=== PATIENT | male | born 1970 | race American Indian/Alaskan Native ===

== ENCOUNTER 2019-05-26 09:10 | Emergency (ER) | payer BC ==
[2019-05-26 09:16] VITALS: BP 167/102
[2019-05-26] MEDS ORDERED: TORADOL IM ONE (09:52)
--- NOTE | 2019-05-26 09:56 | Emergency Department Report ---
ED Back Pain/Injury HPI - General Chief Complaint: Back Pain/Injury Stated Complaint: BACK PAIN Time Seen by Provider: 05/26/19 09:52 Source: patient Limitations: No Limitations - History of Present Illness Initial Comments: Patient is 49 years old male with history of herniated disc. Patient presented to the ER complaining of lower back pain radiates down to his left leg for the last 3 days. Patient denied any recent injury. Patient also denied any fever or chills. No weight loss. No bowel or bladder incontinence. Patient also denied any weakness numbness or tingling sensation. MD Complaint: back pain -: days(s) (5) - Related Data Allergies Allergy/AdvReac Type Severity Reaction Status Date / Time No Known Allergies Allergy Unverified 05/26/19 09:13 ED Review of Systems ROS: Stated complaint: BACK PAIN Other details as noted in HPI Comment: All other systems reviewed and negative Constitutional: denies: chills, fever Respiratory: denies: cough, shortness of breath, SOB with exertion, wheezing Cardiovascular: denies: chest pain, palpitations Gastrointestinal: denies: abdominal pain Musculoskeletal: back pain. denies: joint swelling, arthralgia, myalgia Neurological: denies: headache, weakness ED Past Medical Hx - Past Medical History Previous Medical History?: Yes Hx Hypertension: Yes - Surgical History Past Surgical History?: No - Social History Smoking Status: Never Smoker Substance Use Type: None ED Physical Exam - General Limitations: No Limitations General appearance: alert, in no apparent distress - Head Head exam: Present: atraumatic, normocephalic, normal inspection - Eye Eye exam: Present: normal appearance - ENT ENT exam: Present: normal exam, normal orophraynx, mucous membranes moist - Neck Neck exam: Present: normal inspection, full ROM. Absent: tenderness, meningismus, lymphadenopathy, thyromegaly - Respiratory Respiratory exam: Present: normal lung sounds bilaterally - Cardiovascular Cardiovascular Exam: Present: regular rate, normal rhythm, normal heart sounds - GI/Abdominal GI/Abdominal exam: Present: soft, normal bowel sounds. Absent: distended, tenderness, guarding, rebound, rigid, hypoactive bowel sounds, mass, bruit, pulsatile mass, hernia - Extremities Exam Extremities exam: Present: normal inspection, full ROM, normal capillary refill. Absent: pedal edema, calf tenderness - Back Exam Back exam: Present: normal inspection, full ROM, muscle spasm. Absent: CVA tenderness (R), CVA tenderness (L), paraspinal tenderness, vertebral tenderness - Neurological Exam Neurological exam: Present: alert, oriented X3, CN II-XII intact, normal gait, reflexes normal - Psychiatric Psychiatric exam: Present: normal mood - Skin Skin exam: Present: warm, intact, normal color ED Course Vital Signs 05/26/19 09:15 Temperature 98.5 F Pulse Rate 90 Respiratory 18 Rate Blood Pressure 167/102 O2 Sat by Pulse 98 Oximetry Critical care attestation.: If time is entered above; I have spent that time in minutes in the direct care of this critically ill patient, excluding procedure time. ED Disposition Clinical Impression: Acute back pain Disposition: DC-01 TO HOME OR SELFCARE Is pt being admited?: No Condition: Stable Instructions: Lumbar Radiculopathy (ED) Referrals: PRIMARY CARE, [Referring] - 3-5 Days
== END 2019-05-26 10:28 | disposition home or self-care (01) ==
LOC: ED 09:10
DX: M54.5 Low back pain (principal); I10 Essential (primary) hypertension
CPT/HCPCS: 96372; 99282; J1885

== ENCOUNTER 2021-12-30 08:49 | Day surgery (SDC) | payer BC ==
[2021-12-30] MEDS ORDERED: LACTATED RINGERS 1,000 ML ONE (09:09)
[2021-12-30] MEDS ORDERED: ceFAZolin/STERILE WATER 2 GM/20 ML SYRINGE IV NR (10:00)
[2021-12-30] MEDS ORDERED: ACETAMINOPHEN 500 MG TAB PO NR (10:32)
[2021-12-30] MEDS ORDERED: HYDROmorphone 1 MG/1 ML INJ IV PRN ×2 (10:32)
[2021-12-30] MEDS ORDERED: MAGNESIUM OXIDE 400 MG TAB PO ONE (10:32)
[2021-12-30] MEDS ORDERED: ONDANSETRON 4 MG/2 ML INJ IV PRN (10:32)
--- NOTE | 2021-12-30 10:33 | Anesthesia Day of Surgery ---
Anesthesia Day of Surgery - Day of Surgery Patient Examined: Yes Patient H&P Reviewed: Yes Patient is NPO: Yes
--- NOTE | 2021-12-30 10:34 | Anesthesia Consultation ---
Anesthesia Consult and Med Hx Date of service: 12/30/21 - Airway Anesthetic Teeth Evaluation: Good ROM Head & Neck: Adequate Mental/Hyoid Distance: Adequate Mallampati Class: Class III Intubation Access Assessment: Probably Good - Pre-Operative Health Status ASA Pre-Surgery Classification: ASA3 Proposed Anesthetic Plan: General - Pulmonary Hx Smoking: Yes (STOPPED X 20 YRS) Hx Sleep Apnea: Yes (DX SLEEP APNEA , NO CPAP USE.) - Cardiovascular System Hx Hypertension: Yes (X 3 YRS) - Central Nervous System Hx Back Pain: Yes (WITH LEFT LEG PAIN) Hx Psychiatric Problems: No - Gastrointestinal Hx Gastroesophageal Reflux Disease: No - Hematic Hx Anemia: No Hx Sickle Cell Disease: No - Other Systems Hx Cancer: No
[2021-12-30] MEDS ORDERED: CELECOXIB 200 MG CAP PO NR (11:00)
[2021-12-30] MEDS ORDERED: LACTATED RINGERS 1,000 ML IV SCH (11:00)
[2021-12-30] MEDS ORDERED: MIDAZOLAM 2 MG/2 ML INJ IV NR (11:00)
[2021-12-30] MEDS ORDERED: MIDAZOLAM 5 MG/5 ML INJ MDV IV ONE (12:39)
[2021-12-30] MEDS ORDERED: fentaNYL 100 MCG/2 ML INJ ONE (12:40)
[2021-12-30] MEDS ORDERED: dexAMETHasone 4 MG/ML VIAL ONE (12:41)
[2021-12-30] MEDS ORDERED: BUPIVACAINE/PF (0.25%) 2.5 MG/ML 30 ML VIAL INFILTRATI ONE (12:41)
[2021-12-30] MEDS ORDERED: LIDOCAINE (1%) 10 MG/1 ML VIAL 20 ML MDV ONE (12:43)
[2021-12-30] MEDS ORDERED: BUPIVACAINE/PF (0.5%) 5 MG/1 ML 30 ML VIAL INFILTRATI ONE (12:43)
[2021-12-30] MEDS ORDERED: ROCURONIUM 50 MG/5 ML INJ IV ONE (13:27)
[2021-12-30] MEDS ORDERED: propofoL 200 MG/20 ML VIAL IV ONE ×2 (13:28→13:51)
[2021-12-30] MEDS ORDERED: ONDANSETRON 4 MG/2 ML INJ ONE (14:09)
[2021-12-30] MEDS ORDERED: dexAMETHasone 20 MG/5 ML VIAL ONE (14:09)
[2021-12-30] MEDS ORDERED: WATER FOR IRRIG STERILE 1,500 ML BOTTLE IR ONE (14:30)
[2021-12-30] MEDS ORDERED: NEOSTIGMINE 10MG/10 ML INJ MDV ONE (15:16)
[2021-12-30] MEDS ORDERED: GLYCOPYRROLATE 0.4 MG/2 ML INJ ONE (15:16)
[2021-12-30] MEDS ORDERED: KETOROLAC 30 MG/1 ML INJ ONE (15:17)
--- NOTE | 2021-12-30 16:04 | Short Stay Summary ---
Short Stay Documentation Date of service: 12/30/21 - History Principal diagnosis: umbilical hernia - Allergies and Medications Current Medications: Allergies No Known Allergies Allergy (Verified 12/19/21 16:47) Home Medications Medication Instructions Recorded Confirmed Last Taken Type Naproxen [EC-Naproxen] 500 mg PO DAILY 12/19/21 12/19/21 Unknown History amLODIPine [Norvasc] 5 mg PO DAILY 12/19/21 12/19/21 Unknown History Active Medications Cefazolin Sodium (Cefazolin/Sterile Water 2 Gm/20 Ml Syringe) 2 gm IV PREOP NR Stop: 12/30/21 23:59 Hydromorphone HCl (Hydromorphone 1 Mg/1 Ml Inj) 0.25 mg IV Q10MIN PRN PRN Reason: Pain, Moderate (4-6) Stop: 12/30/21 23:00 Hydromorphone HCl (Hydromorphone 1 Mg/1 Ml Inj) 0.5 mg IV Q10MIN PRN PRN Reason: Pain , Severe (7-10) Stop: 12/30/21 20:00 Lactated Ringer's (Lactated Ringers) 1,000 mls @ 125 mls/hr IV DIRECT PHILLY Last Admin: 12/30/21 09:35 Dose: 125 mls/hr Midazolam HCl (Midazolam 2 Mg/2 Ml Inj) 2 mg IV PREOP NR Stop: 12/30/21 23:59 Last Admin: 12/30/21 11:00 Dose: 2 mg Ondansetron HCl (Ondansetron 4 Mg/2 Ml Inj) 4 mg IV ONCE PRN PRN Reason: Nausea And Vomiting - Brief post op/procedure progress note Date of procedure: 12/30/21 Pre-op diagnosis: umbilical hernia Post-op diagnosis: same Procedure: robotic assisted umbilical hernia repair with mesh Anesthesia: SUMI, other (TAP block) Findings: 2 cm umbilical hernia Repaired with 12cm x 10 cm bard flat mesh Surgeon: AILYN WOLF Estimated blood loss: minimal Pathology: none Condition: stable - Hospital course Hospital course: Pt observed in PACU and discharged to home in stable condition. - Disposition Condition at discharge: Good Short Stay Discharge Plan Activity: other (No heavy lifting for 6 weeks) Diet: regular Wound: open to air, per your surgeon's advice Additional Instructions: see printed instructions Follow up with: LISA ARMANDO MD [Primary Care Provider] - 7 Days AILYN WOLF DO [Staff Physician] - 14 Days Prescriptions: Gabapentin 300 mg PO BID #6 cap Ibuprofen [Motrin 800 MG tab] 800 mg PO Q8HR PRN #30 tablet PRN Reason: Pain, Moderate (4-6) HYDROcodone/APAP 5-325 [Condon 5/325] 1 each PO Q6HR PRN #20 tablet PRN Reason: Pain , Severe (7-10)
--- NOTE | 2021-12-30 17:12 | Operative Report ---
Operative Report Operative Report: Date of procedure: 12/30/21 Pre-op diagnosis: umbilical hernia Post-op diagnosis: same Procedure: robotic assisted umbilical hernia repair with mesh Anesthesia: GETA, other (TAP block) Findings: 2 cm umbilical hernia Repaired with 12cm x 10 cm bard flat mesh Surgeon: AILYN WOLF DO Pattern Hand surgeon: MD Magdalena Estimated blood loss: minimal Pathology: none Condition: stable Hospital course: Pt observed in PACU and discharged to home in stable condition. Condition at discharge: Good HPI and indication: 51-year-old male who presents to surgery clinic for evaluation of a bulge at his umbilicus. This bulge has been present for some time and was reducible on exam. He was symptomatic from the hernia. It was recommended that the hernia be repaired. All risk, benefits, alternatives surgery discussed with patient questions answered. It was recommended that the hernia be repaired robotically. Alternatives such as open versus laparoscopic repair were also discussed. The patient was in agreement and consent obtained. Procedure in detail: The patient was identified in the preoperative area and taken back to the operating room and placed on the operating room table in supine position. After anesthesia was induced, both arms were tucked with all bony prominences padded appropriately. The abdomen was then prepped and draped in usual sterile fashion and a timeout was performed. The patient had a TAP block performed by anesthesia preoperatively. A isak incision was made in the left upper quadrant at Charles's point through which a Veress needle was inserted. The Veress needle position was confirmed using the saline drop test and the abdomen insufflated to 15 mmHg without incident. A 5 mm incision was made in the right upper quadrant through which a 5 mm Optiview trocar was placed under direct visualization. The abdomen was inspected and there was no underlying injury to any of the abdominal structures. The Veress needle was identified and removed. A 12 mm balloon trocar was placed in the right lateral abdomen and an 8 mm robotic trocar in the right lower quadrant under direct visualization. The 5 mm right upper quadrant trocar was replaced with an 8 mm robotic trocar under direct visualization. The patient was tilted to the left and the robot docked. A fenestrated bipolar was placed in arm #2 and a monopolar scissor in arm #1. The surgeon was then transferred to the console. I createD a preperitoneal flap to the right of the hernia defect. The peritoneum was scored to the right of the hernia defect using a monopolar scissor and a preperitoneal plane developed in an avascular plane. Using a combination of blunt dissection and cautery the plane superior to and inferior to the hernia was developed. There was preperitoneal fat incarcerated in the hernia which was carefully dissected and reduced. I attempted to reduce the hernia sac however this was densely adhered to the skin. In order to prevent injury to the skin the hernia sac was transected. I then carried my preperitoneal dissection to the left aspect of the hernia defect in order to accommodate mesh placement. Once the dissection was complete the pocket was checked for hemostasis. The hernia defect was measured at 2cm and it was decided to fix the hernia with a 12cmx 10 cm Bard polypropylene mesh. The mesh along with suture material placed into the abdomen by the expanded duty dental assistant. First the hernia defect was closed using a 0 VLoc running stitch. The pressure in the abdomen was turned down to 8 mmHg. The mesh was then placed in the preperitoneal space and centered. The mesh was sutured into place in all 4 quadrants using interrupted 2-0 Vicryl stitches. The mesh laid flat in the preperitoneal space with adequate overlap of the hernia. The peritoneum was approximated using 3 0 VLoc running stitch. A defect at the center of the peritoneum was approximated using a 3 0 V-Loc running stitch. The robot was then undocked and the surgeon scrubbed back in. The remainder of the case was performed laparoscopically. All sharp and suture material was removed under direct visualization. The 12 mm port was removed and the fascia closed with an interrupted 0-vicryl stitch using the Huang Cervantes device.. The right lower quadrant port fascia was also closed with an interrupted 0 Vicryl stitch using the Huang Cervantes device. The right upper quadrant port was removed and the abdomen desufflated. The skin incisions were closed with 4-0 Monocryl subcuticular stitches and skin glue. Once the glue was dry a 4 x 4 gauze was balled up and placed at the umbilicus and secured with a Tegaderm. At the end of the case, all sponge, instrument, sharp counts were correct 2. An abdominal binder was applied to the patient. The patient was awoken from anesthesia, extubated and taken to PACU in stable condition.
--- NOTE | 2021-12-30 18:05 | Post Anesthesia Evaluation ---
- Post Anesthesia Evaluation Patient Participated: Yes Airway Patent: Yes Stable Respiratory Function: Yes Nausea/Vomiting: No Temp > 96.8F: Yes Pain Manageable: Yes Adequeate Hydration: Yes Anesthesia Complications: No Block Receding Appropriately: Yes Patient on Ventilator: No
[2021-12-30 21:52] VITALS: BP 135/89
== END 2021-12-30 08:50 | disposition home or self-care (01) ==
LOC: OR 08:49
PROVIDERS: ATTEND Surgery
DX: K42.9 Umbilical hernia without obstruction or gangrene (principal); H40.9 Unspecified glaucoma; I10 Essential (primary) hypertension; G47.30 Sleep apnea, unspecified; M62.08 Separation of muscle (nontraumatic), other site; Z87.891 Personal history of nicotine dependence; Z79.899 Other long term (current) drug therapy; Z98.890 Other specified postprocedural states
CPT/HCPCS: 49652; 64488; C1781; J0690; J1100; J1815; J1885; J2250; J2405; J2704; J2710; J3010; J3490; J7120; S2900; 64450